=== PATIENT | female | born 2000 | race Caucasian/White ===

== ENCOUNTER 2023-11-05 15:35 | Outpatient (OUT) | payer OTHER, SELFPAY ==
[2023-11-05 16:18] LABS: Basophils Percent Auto 0.6 % (0.2-2.0); Eosinophils Percent Auto 0.6 % (0.9-7.0); Hematocrit 38.7 % (36.0-48.0); Hemoglobin 12.5 g/dL (12.0-16.0); Immature Granulocytes Abs Auto 0.01 10^3/uL (0.00-0.03); Immature Granulocytes Pct Auto 0.2 % (0.0-0.5); Lymphocytes Absolute Auto 1.1 10^3/uL (1.2-3.8); Lymphocytes Percent Auto 22.2 % (20.5-60.0); Mean Corpuscular HGB Conc 32.3 g/dL (29.9-35.2); Mean Corpuscular Hemoglobin 29.1 pg (26.7-34.0); Mean Corpuscular Volume 90.2 fL (81.0-99.0); Mean Platelet Volume 10.2 fL (9.5-13.5); Monocytes Absolute Auto 0.3 10^3/uL (0.3-0.8); Monocytes Percent Auto 6.2 % (1.7-12.0); Neutrophils Absolute Auto 3.5 10^3/uL (1.4-6.5); Neutrophils Percent Auto 70.2 % (43.0-75.0); Platelet Count 302 10^3/uL (150-450); Red Blood Count 4.29 10^6/uL (4.20-5.40); Red Cell Distribution Width 13.2 % (11.0-15.0)
[2023-11-05 16:44] LABS: Alanine Aminotransferase 23 U/L (14-59); Albumin Globulin Ratio 1.3; Albumin Level 4.2 g/dL (3.4-5.0); Alkaline Phosphatase 66 U/L (46-116); Aspartate Amino Transferase 18 U/L (15-37); BUN Creatinine Ratio 7.8; Bilirubin Total 0.8 mg/dL (0.2-1.0); Calcium 8.9 mg/dL (8.5-10.1); Carbon Dioxide 32.3 mmol/L (21.0-32.0); Chloride 101 mmol/L (98-107); Estimated GFR (African America >60 (>=60); Estimated GFR (Non-African Ame >60 (>=60); Globulin 3.2 g/dL; Glucose 107 mg/dL (74-106); Potassium 3.3 mmol/L (3.5-5.1); Sodium 142 mmol/L (136-145); Thyroid Stimulating Hormone 0.682 uIU/mL (0.358-3.740); Total Protein 7.4 g/dL (6.4-8.2)
== END 2023-11-05 15:36 | disposition home or self-care (01) ==
LOC: LAB 15:41
PROVIDERS: PCP Family Medicine; Visit Provider Family Medicine
DX: R53.83 Other fatigue (principal); D64.9 Anemia, unspecified; G47.10 Hypersomnia, unspecified; R63.4 Abnormal weight loss
CPT/HCPCS: 36415; 80053; 82607; 82746; 83540; 84436; 84443; 85025